=== PATIENT | female | born 1955 | race Two or more races ===

== ENCOUNTER 2018-01-13 03:43 | Emergency (ER) | payer OTHER ==
[~2018-01-13] VITALS: Ht 167.6 cm; Wt 72.6 kg
[2018-01-13] MEDS ORDERED: SYNTHROID125 MCG (04:01)
[2018-01-13] MEDS ORDERED: AVAPRO150 MG (04:01)
[2018-01-13] MEDS ORDERED: SIMVASTATIN20 MG (04:02)
[2018-01-13] MEDS ORDERED: METOPROLOL SUCC50 MG (04:02)
== END 2018-01-13 10:05 | disposition home or self-care (01) ==
LOC: ER 03:43
DX: R51 Headache (principal)

== ENCOUNTER 2018-02-26 09:01 | Outpatient (CLI) | payer OTHER ==
[~2018-02-26 09:01] MED LIST: AVAPRO150 MG; METOPROLOL SUCC50 MG; SIMVASTATIN20 MG; SYNTHROID125 MCG
== END 2018-02-26 09:11 | disposition home or self-care (01) ==
LOC: RAD 09:01 → RX STUDY 09:15
DX: R13.19 Other dysphagia (principal); M48.02 Spinal stenosis, cervical region

== ENCOUNTER → 2018-10-29 | Outpatient (CLI) | payer OTHER | END | disposition home or self-care (01) | LOC: SONOGRAMA 09:41 → MAMO-SONO 09:45 | DX: N63.10 Unspecified lump in the right breast, unspecified quadrant (principal) ==

== ENCOUNTER 2018-12-24 17:02 | Emergency (ER) | payer OTHER ==
[~2018-12-24] VITALS: Ht 167.6 cm; Wt 70.3 kg
== END 2018-12-24 20:47 | disposition home or self-care (01) ==
LOC: ER 17:02
DX: N39.0 Urinary tract infection, site not specified (principal)

== ENCOUNTER 2019-01-19 18:17 | Emergency (ER) | payer OTHER ==
[~2019-01-19] VITALS: Ht 167.6 cm; Wt 68.9 kg
== END 2019-01-19 22:03 | disposition home or self-care (01) ==
LOC: ER 18:17
DX: G89.11 Acute pain due to trauma (principal); G44.89 Other headache syndrome; M79.642 Pain in left hand; M62.838 Other muscle spasm

== ENCOUNTER 2019-04-18 20:16 | Emergency (ER) | payer OTHER ==
[~2019-04-18] VITALS: Ht 167.6 cm; Wt 69.4 kg
[2019-04-18] MEDS ORDERED: DELTASONE20 MG PO (22:46)
[2019-04-18] MEDS ORDERED: SKELAXIN800 MG PO (22:46)
== END 2019-04-18 22:54 | disposition home or self-care (01) ==
LOC: ER 20:16
DX: M62.838 Other muscle spasm (principal); M54.2 Cervicalgia; M25.551 Pain in right hip

== ENCOUNTER 2019-07-08 14:04 | Emergency (ER) | payer OTHER ==
[~2019-07-08] VITALS: Ht 167.6 cm; Wt 69.4 kg
[~2019-07-08 14:04] MED LIST changes: +DELTASONE20 MG PO; +SKELAXIN800 MG PO
[2019-07-08] MEDS ORDERED: YUVAFEM10 MCG (14:44)
== END 2019-07-08 17:15 | disposition home or self-care (01) ==
LOC: ER 14:04
DX: R30.0 Dysuria (principal); M54.89 Other dorsalgia; R31.29 Other microscopic hematuria

== ENCOUNTER → 2020-04-24 11:16 | Outpatient (CLI) | payer OTHER ==
[~2020-04-24 11:16] MED LIST changes: +YUVAFEM10 MCG
== END | disposition home or self-care (01) ==
LOC: LAB 11:16
PROVIDERS: ATTEND Urology
DX: N30.00 Acute cystitis without hematuria (principal)

== ENCOUNTER 2020-04-26 13:45 | Outpatient (CLI) | payer OTHER | END 2020-04-26 13:57 | disposition home or self-care (01) | LOC: SONOGRAMA 13:45 → MAMO-SONO 15:15 | PROVIDERS: ATTEND Urology | DX: N99.83 Residual ovary syndrome (principal); N30.10 Interstitial cystitis (chronic) without hematuria ==

== ENCOUNTER 2020-05-12 11:28 | Outpatient (CLI) | payer OTHER | END 2020-05-12 11:40 | disposition home or self-care (01) | LOC: RAD 11:28 | PROVIDERS: ATTEND Urology | DX: Z01.811 Encounter for preprocedural respiratory examination (principal); I11.9 Hypertensive heart disease without heart failure ==

== ENCOUNTER 2020-05-16 09:57 | Day surgery (SDC) | payer OTHER | END 2020-05-16 19:40 | disposition home or self-care (01) | LOC: CIR.AMB 09:57 | PROVIDERS: ATTEND Urology | DX: N30.10 Interstitial cystitis (chronic) without hematuria (principal) ==

== ENCOUNTER 2020-08-18 09:10 | Outpatient (CLI) | payer OTHER ==
[2020-08-20] MEDS ORDERED: SYNTHROID75 MCG PO (08:37)
[2020-08-20] MEDS ORDERED: ESTRIDIOL PO (08:38)
[2020-08-20] MEDS ORDERED: XANAX PO (08:38)
[2020-08-20] MEDS ORDERED: [UNRECOGNIZED DRUG - OTHER] PO (08:39)
[2020-08-20] MEDS ORDERED: CELEXA10 MG PO (08:39)
[2020-08-20] MEDS ORDERED: DAILY MULTIPLE1 EAC2 PO (08:40)
== END 2020-08-18 10:07 | disposition home or self-care (01) ==
LOC: RAD 09:10
PROVIDERS: ATTEND Specialist
DX: Z01.811 Encounter for preprocedural respiratory examination (principal); I10 Essential (primary) hypertension

== ENCOUNTER 2020-08-24 06:45 | Day surgery (SDC) | payer OTHER ==
[~2020-08-24 06:45] MED LIST changes: +CELEXA10 MG PO; +DAILY MULTIPLE1 EAC2 PO; +ESTRIDIOL PO; +SYNTHROID75 MCG PO; +XANAX PO; +[UNRECOGNIZED DRUG - OTHER] PO
[2020-08-24] MEDS ORDERED: TRAM1TAB98 PO (12:14)
== END 2020-08-24 15:46 | disposition home or self-care (01) ==
LOC: CIR.AMB 06:45
PROVIDERS: ATTEND Specialist
DX: N75.0 Cyst of Bartholin's gland (principal); Z20.822 Contact with and (suspected) exposure to COVID-19

== ENCOUNTER 2020-11-17 10:04 | Emergency (ER) | payer OTHER ==
[~2020-11-17] VITALS: Ht 167.6 cm; Wt 68.9 kg
[~2020-11-17 10:04] MED LIST changes: +TRAM1TAB98 PO
[2020-11-17] MEDS ORDERED: SYNTHROID100 MCG (10:19)
[2020-11-17] MEDS ORDERED: XANAX1 MG (10:20)
== END 2020-11-17 15:33 | disposition home or self-care (01) ==
LOC: ER 10:04
DX: M54.5 Low back pain (principal)

== ENCOUNTER 2021-01-09 19:10 | Emergency (ER) | payer OTHER ==
[~2021-01-09] VITALS: Ht 167.6 cm; Wt 68.9 kg
[~2021-01-09 19:10] MED LIST changes: +SYNTHROID100 MCG; +XANAX1 MG
[2021-01-09] MEDS ORDERED: NITROFURANTOIN100 MG PO (23:24)
== END 2021-01-10 00:46 | disposition home or self-care (01) ==
LOC: ER 19:10
DX: N20.0 Calculus of kidney (principal); N39.0 Urinary tract infection, site not specified

== ENCOUNTER 2021-03-12 20:40 | Emergency (ER) | payer OTHER ==
[~2021-03-12] VITALS: Ht 167.6 cm; Wt 69.9 kg
[~2021-03-12 20:40] MED LIST changes: +NITROFURANTOIN100 MG PO
== END 2021-03-13 02:39 | disposition home or self-care (01) ==
LOC: ER 20:40
DX: R51.9 Headache, unspecified (principal); R60.0 Localized edema

== ENCOUNTER 2021-06-24 07:34 | Emergency (ER) | payer OTHER ==
[~2021-06-24] VITALS: Ht 167.6 cm; Wt 68.0 kg
== END 2021-06-24 11:08 | disposition home or self-care (01) ==
LOC: ER 07:34
DX: B34.9 Viral infection, unspecified (principal); I10 Essential (primary) hypertension

== ENCOUNTER 2021-07-31 19:28 | Emergency (ER) | payer OTHER ==
[~2021-07-31] VITALS: Ht 167.6 cm; Wt 68.9 kg
== END 2021-07-31 21:10 | disposition home or self-care (01) ==
LOC: ER 19:28
DX: M79.604 Pain in right leg (principal); M79.89 Other specified soft tissue disorders; Z88.0 Allergy status to penicillin; Z88.6 Allergy status to analgesic agent; Z91.041 Radiographic dye allergy status

== ENCOUNTER → 2023-02-17 | Emergency (ER) | payer OTHER ==
[~2023-02-17] VITALS: Ht 167.6 cm; Wt 71.7 kg
== END | disposition left against medical advice (07) ==
LOC: ER 23:26
DX: Z53.21 Procedure and treatment not carried out due to patient leaving prior to being seen by health care provider (principal)

== ENCOUNTER → 2024-09-29 | Emergency (ER) | payer OTHER ==
[~2024-09-29] VITALS: Ht 167.6 cm; Wt 70.3 kg
[~2024-09-29] MED LIST changes: +ORPHENADRINE CITRATE 30 MG/ML AMPUL IM ONE; +ORPHENADRINE CITRATE 30 MG/ML AMPUL ONE; +TRAMADOL HCL 50 MG TABLET PO ONE; +TRIAMCINOLONE ACETONIDE 40 MG/ML VIAL IM ONE; +TRIAMCINOLONE ACETONIDE 40 MG/ML VIAL ONE
[2024-09-29 13:20] VITALS: BP 121/72; O2SAT 98
== END | disposition home or self-care (01) ==
LOC: ER 13:18
DX: M54.50 Low back pain, unspecified (principal); I10 Essential (primary) hypertension; Z88.0 Allergy status to penicillin; Z88.8 Allergy status to other drugs, medicaments and biological substances

== ENCOUNTER 2024-12-13 19:30 | Emergency (ER) | payer OTHER ==
[~2024-12-13] VITALS: Ht 167.6 cm; Wt 70.8 kg
[~2024-12-13 19:30] MED LIST changes: -ORPHENADRINE CITRATE 30 MG/ML AMPUL IM ONE; -ORPHENADRINE CITRATE 30 MG/ML AMPUL ONE; -TRAMADOL HCL 50 MG TABLET PO ONE; -TRIAMCINOLONE ACETONIDE 40 MG/ML VIAL IM ONE; -TRIAMCINOLONE ACETONIDE 40 MG/ML VIAL ONE
[2024-12-13 19:56] VITALS: BP 131/75; O2SAT 97
[2024-12-13] MEDS ORDERED: CRESTOR40 MG (20:03)
[2024-12-13] MEDS ORDERED: ORPHENADRINE CITRATE 30 MG/ML AMPUL ONE (22:13)
[2024-12-13] MEDS ORDERED: ACETAMINOPHEN 500 MG GEL..CAP PO ONE ×2 (22:14→22:15)
[2024-12-13] MEDS ORDERED: DEXAMETHASONE SODIUM PHOSPHATE 4 MG/ML VIAL ONE (22:14)
[2024-12-13] MEDS ORDERED: DEXAMETHASONE SODIUM PHOSPHATE 4 MG/ML VIAL IM ONE (22:15)
[2024-12-13] MEDS ORDERED: ORPHENADRINE CITRATE 30 MG/ML AMPUL IM ONE (22:15)
[2024-12-13 22:38] LABS: BASO % 0.9 % (0.1-1.2); EOS # 0.14 (0.04-0.54); EOS % 2.6 % (0.7-7.0); HEMATOCRIT 39.4 % (34.1-44.9); HEMOGLOBIN 13.2 g/dL (11.2-15.7); LYMPH # 1.76 (1.18-3.74); MEAN CORPUSCULAR HEMOGLOBIN 30.2 pg (25.6-32.2); MONO # 0.45 (0.24-0.82); MONO % 8.4 % (4.7-12.5); NEUT # 2.94 (1.56-6.13); NEUT % 55.1 % (34.0-71.1); PLATELET COUNT 232 K/uL (163-369); RED BLOOD COUNT 4.37 M/uL (3.93-5.22); RED CELL DISTRIBUTION WIDTH 13.9 % (11.6-14.4)
[2024-12-13 22:57] LABS: ALBUMIN 3.7 gm/dL (3.4-5.0); BILIRUBIN TOTAL 0.5 mg/dL (0.3-1.2); CALCIUM 9.4 mg/dL (8.5-10.1); CREATININE SERUM 0.67 mg/dL (0.55-1.02); GFR 86.76; GLOBULINA 3.3 G/DL (2.4-3.5); POTASSIUM 4.49 mEq/L (3.5-5.1)
[2024-12-14] MEDS ORDERED: 8 HOUR650 MG PO (00:10)
[2024-12-14] MEDS ORDERED: BACLOFEN10 MG PO (00:10)
== END 2024-12-14 02:03 | disposition home or self-care (01) ==
LOC: ER 19:30
PROVIDERS: Preventive Medicine Public Health & General Preventive Medicine
DX: M94.0 Chondrocostal junction syndrome [Tietze] (principal); Z88.0 Allergy status to penicillin; I10 Essential (primary) hypertension; E78.49 Other hyperlipidemia; E78.00 Pure hypercholesterolemia, unspecified

== ENCOUNTER 2025-03-26 15:55 | Emergency (ER) | payer OTHER ==
[~2025-03-26] VITALS: Ht 167.6 cm; Wt 70.8 kg
[~2025-03-26 15:55] MED LIST changes: +8 HOUR650 MG PO; +BACLOFEN10 MG PO; +CRESTOR40 MG
[2025-03-26] MEDS ORDERED: ACETAMINOPHEN 500 MG GEL..CAP PO ONE ×2 (18:45→19:37)
[2025-03-26] MEDS ORDERED: CLINDAMYCIN PHOSPHATE 150 MG/ML (600mg) IV ONE ×2 (18:45→19:15)
[2025-03-26] MEDS ORDERED: INTESTINEX680 M1 PO (19:01)
[2025-03-26] MEDS ORDERED: CLEOCIN HCL300 MG PO (19:01)
[2025-03-26] MEDS ORDERED: CLINDAMYCIN PHOSPHATE 150 MG/ML (300mg) ONE (19:36)
== END 2025-03-26 22:23 | disposition home or self-care (01) ==
LOC: ER 15:56
DX: S61.213A Laceration without foreign body of left middle finger without damage to nail, initial encounter (principal); S61.217A Laceration without foreign body of left little finger without damage to nail, initial encounter; W26.0XXA Contact with knife, initial encounter; Y93.89 Activity, other specified; Y92.018 Other place in single-family (private) house as the place of occurrence of the external cause; Y99.9 Unspecified external cause status; I10 Essential (primary) hypertension; Z88.0 Allergy status to penicillin; Z91.041 Radiographic dye allergy status
CPT/HCPCS: 12001; 96365; 99283; J3490